=== PATIENT | male | born 1990 | race Caucasian/White ===

== ENCOUNTER 2020-06-21 16:26 | Inpatient (IN) | payer OTHER, SELFPAY ==
--- NOTE | 2020-06-21 | XR_ITS ---
EXAMINATION: XR CHEST CLINICAL INFORMATION: Chest pain. COMPARISON: None TECHNIQUE: 2 views of the chest were obtained. FINDINGS: No significant abnormality is noted involving the heart, lungs, mediastinum, bony thorax or soft tissues. IMPRESSION: Unremarkable examination.
[2020-06-21 16:49] VITALS: BP 121/72; PULSE 51; RESP 18; TEMP 36.4; O2SAT 99; BMI 23.7
[2020-06-21 16:54] VITALS: BP 121/72; PULSE 51; RESP 15; TEMP 36.4; O2SAT 99
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
[2020-06-21] MEDS: LORazepam 1 MG TABLET 2 MG PO (17:37)
[2020-06-21 17:44] LABS: MANUAL DIFF FLAG NO
[2020-06-21 17:49] LABS: Basophils Percent Auto 0.3 % (0-2); Eosinophils Absolute Auto 0.1 X10*3/uL (0.0-0.4); Eosinophils Percent Auto 1.2 % (0-4); Hematocrit 41.8 % (42-52); Hemoglobin 13.9 g/dl (14.0-18.0); Imm Gran Abs Auto 0.02 X10*3/uL (0.00-0.03); Imm Gran Pct Auto 0.2 % (0.0-0.4); Lymphocytes Absolute Auto 1.6 X10*3/uL (1.2-4.9); Mean Corpuscular HGB Conc 33.3 g/dl (31.0-36.0); Mean Corpuscular Hemoglobin 29.8 pg (27.0-33.0); Mean Corpuscular Volume 89.5 fL (80-98); Mean Platelet Volume 9.5 fL (9.4-12.4); Monocytes Absolute Auto 0.5 X10*3/uL (0.1-1.2); Monocytes Percent Auto 5.3 % (2-11); Neutrophils Absolute Auto 6.6 X10*3/uL (2.0-8.3); Platelet Count 240 X10*3/uL (160-400); Red Blood Count 4.67 X10*6/uL (4.60-5.80); Red Cell Distribution Width 13.4 % (11.0-16.0); White Blood Count 8.8 X10*3/uL (4.8-10.8)
[2020-06-21 18:01] LABS: Prothrombin Time 12.4 SEC (10.8-13.0)
[2020-06-21 18:04] LABS: Amphetamine Screen Urine Not Detected (Not Detect); Barbiturates, Urine Not Detected (Not Detect); Benzodiazepines Screen Urine Not Detected (Not Detect); Cannabinoid Screen Urine Not Detected (Not Detect); Cocaine Screen Urine Not Detected (Not Detect); Opiate Screen Urine Not Detected (Not Detect); Phencyclidine Screen Urine Not Detected (Not Detect)
[2020-06-21 18:09] LABS: Ethanol < 10 mg/dL
[2020-06-21 18:18] LABS: Troponin-I High Sensitivity < 3.5 ng/L (<3.5-35.0)
[2020-06-21 18:30] VITALS: BP 110/53; PULSE 52; RESP 15; TEMP 36.7; O2SAT 98
[2020-06-21 18:31] LABS: Alanine Aminotransferase 30 U/L (0-40); Albumin Level 4.3 g/dL (3.5-5.0); Alkaline Phosphatase 78 U/L (39-117); Aspartate Amino Transferase 27 U/L (5-37); Bilirubin Direct 0.2 mg/dL (0.0-0.5); Bilirubin Total 0.4 mg/dL (0.0-1.0); Magnesium 2.1 mg/dL (1.6-2.6); Salicylate < 5.0 mg/dL (15-30); Total Protein 6.7 g/dL (6.5-8.0)
[2020-06-21 18:42] LABS: Acetaminophen LAB < 1 mcg/mL (<30)
[2020-06-21 19:17] LABS: Lipase 18 U/L (8-78)
[2020-06-21 21:23] VITALS: BP 122/61; PULSE 50; RESP 16; TEMP 36.1; O2SAT 99
--- NOTE | 2020-06-21 22:34 | PC.NURSE ---
report faxed to n called and received. pt resting in his room visable on monitor. no s/s of resp distress noted.
--- NOTE | 2020-06-21 23:58 | PC.NURSE ---
pt sleeping in his room needs met at bedside. rr even and reg no s/s of distress. pt visable on the monitor.
[2020-06-22] VITALS (8 sets, daily range): BP systolic 100–126; BP diastolic 46–73; PULSE 62–81; RESP 12–18; TEMP 36.1–37.1; O2SAT 98–99
--- NOTE | 2020-06-22 03:04 | PC.NURSE ---
pt sleeping visable on the monitor, no s/s of distress, rr even and reg.
--- NOTE | 2020-06-22 03:19 | PC.NURSE ---
bhn seen pt at 014
--- NOTE | 2020-06-22 06:10 | PC.NURSE ---
pt has slept thur the night needs met at bedside, pt visable on the monitor, skin warm and dry no s/s of resp distress
--- NOTE | 2020-06-22 06:24 | PC.NURSE ---
pt bp low 100/46 with sleeping.
--- NOTE | 2020-06-22 07:40 | PC.NURSE ---
Report received. PT is sleeping in bed. Breathing is even and unlabored. Inpatient bed search in progress.
--- NOTE | 2020-06-22 09:29 | PC.NURSE ---
PT sitting in bed watching TV. Calm and cooperative. No complaints at the time.
--- NOTE | 2020-06-22 11:07 | PC.NURSE ---
PT is resting in bed. Calm and cooperative. No complaints at this time.
--- NOTE | 2020-06-22 13:17 | PC.NURSE ---
PT is sitting in his bed eating lunch. Calm and cooperative. No complaints at this time.
--- NOTE | 2020-06-22 15:18 | PC.NURSE ---
PT is resting in bed. Calm and cooperative. No other complaints.
--- NOTE | 2020-06-22 17:18 | PC.NURSE ---
PT is resting in bed. Calm and cooperative. Waiting to be reevaluated by [facility].
--- NOTE | 2020-06-22 17:18 | PC.NURSE ---
PT is resting in bed. Calm and cooperative. No other complaints.
--- NOTE | 2020-06-22 19:09 | PC.NURSE ---
Report received from Tamar CONDE. Pt sleeping at this time. Bedsearch continues, 15 min checks for safety.
[2020-06-22] MEDS: Nicotine 21 MG PATCH.TD24 TRANSDERMA (21:18)
--- NOTE | 2020-06-22 22:02 | PC.NURSE ---
Pt sleeping at this time, resp reg and even.
[2020-06-23 02:32] VITALS: RESP 17
[2020-06-23 06:55] VITALS: BP 104/54; PULSE 57; RESP 17; TEMP 37.1; O2SAT 98
[2020-06-23 09:03] VITALS: RESP 18
[2020-06-23 10:54] VITALS: BP 111/62; PULSE 60; RESP 17; TEMP 36.6; O2SAT 99
[2020-06-23 12:37] LABS: SARS COV2 PCR INHOUSE NEGATIVE (Negative)
[2020-06-23 14:00] VITALS: BP 114/70; PULSE 66; TEMP 36.8
--- NOTE | 2020-06-23 18:23 | PC.ADMIT ---
Pt arrived on M5 from [facility] at 1420. PT is a 29 year old Belarusian speaking male on a CV status. PT is Covid - Tox screen and labs were within normal limits. PT is unknown to M5 but does have a history of detox admission at [facility]. PT arrived via ambulance after reporting SI with intent and plan to drink excessively and jump off a bridge. PT is endorsing hopelessness and helplessness and described poor sleep and appetite. PT reported to heavy drinking and binging on heroin and cocaine starting on 06/18/20. PT reported being homeless and does not want to be out on the streets after discharge .Pt is diagnosed with MDD and Autism spectrum. Denied any pain, SI, AH, VH on admit. DR Sanchez called for orders and notified of admission. PT on 15mins safety checks. Pleasant and cooperative on admit. Pt had clear thoughts with stable mood. Pt felt safe on unit and medications were verified with pharmacy
[2020-06-23] MEDS: QUEtiapine Fumarate 100 MG TABLET PO (20:29)
[2020-06-23] MEDS: Naltrexone HCl 50 MG TABLET PO (20:29)
[2020-06-24 08:42] LABS: Cholesterol 142 mg/dL; HDL Cholesterol 31 mg/dL; LDL Cholesterol Calculated 89 mg/dl; Triglycerides 113 mg/dL
[2020-06-24] MEDS: FLUoxetine HCl 20 MG CAPSULE PO (09:03)
[2020-06-24] MEDS: Nicotine 21 MG PATCH.TD24 TRANSDERMA (09:03)
[2020-06-24 09:08] LABS: Estimated Average Glucose 91 mg/dL; Hemoglobin A1c % 4.8 %
[2020-06-24 10:00] VITALS: BP 95/51; PULSE 86; TEMP 36.2
[2020-06-24] MEDS: Silver Sulfadiazine 1 % Cream 20 GM TUBE 1 APPL TOPICAL ×2 (15:00→20:43)
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
[2020-06-24] MEDS: QUEtiapine Fumarate 100 MG TABLET PO (20:43)
[2020-06-24] MEDS: Naltrexone HCl 50 MG TABLET PO (20:43)
[2020-06-24 22:00] VITALS: BP 142/66; PULSE 76; TEMP 36.6
[2020-06-25 07:14] VITALS: BP 110/70; PULSE 55; TEMP 36.3
[2020-06-25] MEDS: Nicotine 21 MG PATCH.TD24 TRANSDERMA (08:47)
[2020-06-25] MEDS: FLUoxetine HCl 20 MG CAPSULE PO (08:47)
[2020-06-25 09:40] VITALS: BP 110/70; PULSE 55; TEMP 36.5
[2020-06-25] MEDS: Silver Sulfadiazine 1 % Cream 20 GM TUBE 1 APPL TOPICAL ×2 (12:16→21:25)
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
[2020-06-25 19:49] VITALS: BP 128/60; PULSE 52; TEMP 36.5
[2020-06-25] MEDS: QUEtiapine Fumarate 100 MG TABLET PO (21:27)
[2020-06-25] MEDS: Naltrexone HCl 50 MG TABLET PO (21:27)
[2020-06-26 06:40] VITALS: BP 100/52; PULSE 56; RESP 16; TEMP 36.4
[2020-06-26] MEDS: FLUoxetine HCl 20 MG CAPSULE PO (09:21)
[2020-06-26] MEDS: Nicotine 21 MG PATCH.TD24 TRANSDERMA (09:21)
[2020-06-26] MEDS: Silver Sulfadiazine 1 % Cream 20 GM TUBE 1 APPL TOPICAL ×2 (09:25→21:40)
[2020-06-26 16:00] VITALS: BP 130/67; PULSE 74; TEMP 36.4
[2020-06-26] MEDS: Naltrexone HCl 50 MG TABLET PO (21:39)
[2020-06-26] MEDS: QUEtiapine Fumarate 100 MG TABLET PO (21:40)
--- NOTE | 2020-06-26 22:14 | P.PNPSI_ITS ---
Subjective Subjective Reason For Visit: major depression , autistic disorder Interim History: patient cooperative on unit not overly agitated or depressed He continues to want CSS and his preference is [place] or [place] Review of Systems Reports system reviewed and no additional complaints, except as documented Mental Status Exam Mental Status Exam Patient Appearance: Well Grooomed Patient Orientation: Person, Place, Time and Situation Level of Consciousness: Awake Patient Behavior: Appropriate Mood Description: Calm Affect Description: Calm Patient Cognition Impaired: No Ability to Follow Directions: Good Speech Pattern: Clear, Appropriate and Spontaneous Speech Memory Description: Intact Diagnostics Vital Signs (24Hr): Vital Signs - 24 hr 06/26/20 06:40 06/26/20 16:00 Temperature 97.5 F 97.6 F Pulse Rate 56 74 Respiratory Rate 16 Blood Pressure 100/52 L 130/67 Body Mass Index 23.7 Labs Results: 06/21/20 17:39 Medications Medications Current Medications Generic Name Dose Route Start Last Admin Trade Name Freq PRN Reason Stop Dose Admin Acetaminophen 650 mg 06/23/20 18:42 Acetaminophen 325 Mg Tablet PO Q6H PRN Headache/Pain Mild Scale (1-3) Al Hydroxide/Mg Hydroxide 30 ml 06/23/20 18:42 Magnesium Hydrox/Alum Hydrox 30 Ml Oral.Susp PO Q6H PRN Heartburn/Nausea Doxycycline Hyclate 100 mg 06/22/20 09:00 06/26/20 21:40 Doxycycline Hyclate 100 Mg Tablet PO 07/01/20 21:01 100 mg BID MEÑO Administration Fluoxetine HCl 20 mg 06/24/20 09:00 06/26/20 09:21 Fluoxetine Hcl 20 Mg Capsule PO 20 mg DAILY MEÑO Administration Hydroxyzine HCl 25 mg 06/23/20 18:42 Hydroxyzine Hcl 25 Mg Tablet PO TID PRN Anxiety Magnesium Hydroxide 30 ml 06/23/20 18:42 Milk Of Magnesia 30 Ml Oral.Susp PO DAILY PRN Constipation Naltrexone HCl 50 mg 06/23/20 21:00 06/26/20 21:39 Naltrexone Hcl 50 Mg Tablet PO 50 mg BEDTIME MEÑO Administration Nicotine 21 mg 06/24/20 09:00 06/26/20 09:21 Nicotine 21 Mg Patch.Td24 TRANSDERMA 21 mg DAILY MEÑO Administration Quetiapine Fumarate 100 mg 06/23/20 21:00 06/26/20 21:40 Quetiapine Fumarate 100 Mg Tablet PO 100 mg BEDTIME MEÑO Administration Silver Sulfadiazine 1 appl 06/24/20 12:20 06/26/20 21:40 Silver Sulfadiazine 1 % Cream 20 Gm Tube TOPICAL 1 appl BID MEÑO Administration Trazodone HCl 50 mg 06/23/20 18:42 Trazodone Hcl 50 Mg Tablet PO BEDTIME PRN Insomnia Allergies Allergies Allergy/AdvReac Type Severity Reaction Status Date / Time Penicillins Allergy Intermediate Hives Verified 06/21/20 17:10 Assessment & Plan Assessment & Plan (1) Cocaine use disorder: Status: Acute Code(s): F14.10 - Cocaine abuse, uncomplicated Assessment and Plan: Refer to [facility] (2) Opioid use disorder: Status: Acute Code(s): F11.99 - Opioid use, unspecified with unspecified opioid-induced disorder Assessment and Plan: Refer to [facility] (3) Alcohol use disorder: Status: Acute Assessment and Plan: Refer to [facility] (4) Major depression: Qualifiers: Major depression recurrence: recurrent Active/Remission status: currently active Major depression episode severity: severe Psychotic features: without psychotic features Qualified Code(s): F33.2 - Major depressive disorder, recurrent severe without psychotic features Status: Acute Code(s): F32.9 - Major depressive disorder, single episode, unspecified Assessment and Plan: CT medication unchanged Skills Groups (5) Burn (any degree) involving 10-19% of body surface: Status: Acute Code(s): T31.10 - Lee involving 10-19% of body surface with 0% to 9% third degree lee Assessment and Plan: CT silvadene and dressings Healing well Greater than 50% of the session was spent on counseling and/or coordination of care
[2020-06-27 06:17] VITALS: BP 107/63; PULSE 52; RESP 16; TEMP 36.4; O2SAT 99
[2020-06-27] MEDS: FLUoxetine HCl 20 MG CAPSULE PO (08:40)
[2020-06-27] MEDS: Nicotine 21 MG PATCH.TD24 TRANSDERMA (08:40)
[2020-06-27] MEDS: Silver Sulfadiazine 1 % Cream 20 GM TUBE 1 APPL TOPICAL ×2 (08:59→22:04)
[2020-06-27] MEDS: Flu Vacc QS2020-21(6mos up)/PF 0.5 ML SYRINGE IM (11:35)
--- NOTE | 2020-06-27 15:25 | P.PNPSI_ITS ---
Subjective Subjective Date of Service: 06/27/20 Reason For Visit: major depression , autistic disorder Subjective Notes: Conditional Voluntary Interim History: Eric has been feeling less depressed and he has no urges to self harm. He is going to groups and finds them helpful. He finds the medication helpful. He continues to want CSS and his preference is [place] or [place] Medication Compliance: Yes Side effects from medications: No Attending Groups: Yes Review of Systems Reports system reviewed and no additional complaints, except as documented Mental Status Exam Mental Status Exam Patient Appearance: Well Grooomed Patient Orientation: Person, Place, Time and Situation Level of Consciousness: Awake Patient Behavior: Appropriate Mood Description: Calm Affect Description: Calm Patient Cognition Impaired: No Ability to Follow Directions: Good Speech Pattern: Clear, Appropriate and Spontaneous Speech Memory Description: Intact Hallucinations: None Delusions: Not Present Thought Process: Rumination and Goal Oriented Thought Content: positive for Circumstantial Depressive Symptoms: Increased Anxiety, Insomnia and Unhappiness Judgement: Fair Diagnostics Vital Signs (24Hr): Vital Signs - 24 hr 06/26/20 16:00 06/27/20 06:17 Temperature 97.6 F 97.5 F Pulse Rate 74 52 Respiratory Rate 16 Blood Pressure 130/67 107/63 Pulse Oximetry 99 Body Mass Index 23.7 Labs Results: 06/21/20 17:39 Medications Medications Current Medications Generic Name Dose Route Start Last Admin Trade Name Kishoreq PRN Reason Stop Dose Admin Acetaminophen 650 mg 06/23/20 18:42 Acetaminophen 325 Mg Tablet PO Q6H PRN Headache/Pain Mild Scale (1-3) Al Hydroxide/Mg Hydroxide 30 ml 06/23/20 18:42 Magnesium Hydrox/Alum Hydrox 30 Ml Oral.Susp PO Q6H PRN Heartburn/Nausea Doxycycline Hyclate 100 mg 06/22/20 09:00 06/27/20 08:40 Doxycycline Hyclate 100 Mg Tablet PO 07/01/20 21:01 100 mg BID MEÑO Administration Fluoxetine HCl 20 mg 06/24/20 09:00 06/27/20 08:40 Fluoxetine Hcl 20 Mg Capsule PO 20 mg DAILY MEÑO Administration Hydroxyzine HCl 25 mg 06/23/20 18:42 Hydroxyzine Hcl 25 Mg Tablet PO TID PRN Anxiety Magnesium Hydroxide 30 ml 06/23/20 18:42 Milk Of Magnesia 30 Ml Oral.Susp PO DAILY PRN Constipation Naltrexone HCl 50 mg 06/23/20 21:00 06/26/20 21:39 Naltrexone Hcl 50 Mg Tablet PO 50 mg BEDTIME MEÑO Administration Nicotine 21 mg 06/24/20 09:00 06/27/20 08:40 Nicotine 21 Mg Patch.Td24 TRANSDERMA 21 mg DAILY EMÑO Administration Quetiapine Fumarate 100 mg 06/23/20 21:00 06/26/20 21:40 Quetiapine Fumarate 100 Mg Tablet PO 100 mg BEDTIME MEÑO Administration Silver Sulfadiazine 1 appl 06/24/20 12:20 06/27/20 08:59 Silver Sulfadiazine 1 % Cream 20 Gm Tube TOPICAL 1 appl BID MEÑO Administration Trazodone HCl 50 mg 06/23/20 18:42 Trazodone Hcl 50 Mg Tablet PO BEDTIME PRN Insomnia Allergies Allergies Allergy/AdvReac Type Severity Reaction Status Date / Time Penicillins Allergy Intermediate Hives Verified 06/21/20 17:10 Assessment & Plan Assessment & Plan (1) Major depression: Qualifiers: Major depression recurrence: recurrent Active/Remission status: currently active Major depression episode severity: severe Psychotic features: without psychotic features Qualified Code(s): F33.2 - Major depressive disorder, recurrent severe without psychotic features Status: Acute Code(s): F32.9 - Major depressive disorder, single episode, unspecified (2) Cocaine use disorder: Status: Acute Code(s): F14.10 - Cocaine abuse, uncomplicated (3) Opioid use disorder: Status: Acute Code(s): F11.99 - Opioid use, unspecified with unspecified opioid-induced disorder (4) Alcohol use disorder: Status: Acute (5) Burn (any degree) involving 10-19% of body surface: Status: Acute Code(s): T31.10 - Lee involving 10-19% of body surface with 0% to 9% third degree lee Assessment and Plan: Eric has been brighter and without thoughts of self harm. He is cooperative with the referrals to [facility]. Greater than 50% of the session was spent on counseling and/or coordination of care Patient educated on: diagnosis, medication risk/benefits and substance abuse Informed Consent: does not understand Reason for contiued inpatient stay Substantial Risk for: rapid decompensation
[2020-06-27 17:18] VITALS: BP 113/66; PULSE 57; TEMP 36.8
--- NOTE | 2020-06-27 18:47 | PC.NURSE ---
right forearm has multiple cigarette lee. area was cleaned with normal saline, padded dry with sterile gauze, bacitracin applied. wounds were covered with sterile netting. some of wounds have purulent draining, no redness, no swelling, no infection noted. afebrile
[2020-06-27] MEDS: Naltrexone HCl 50 MG TABLET PO (22:04)
[2020-06-27] MEDS: QUEtiapine Fumarate 100 MG TABLET PO (22:04)
[2020-06-28 06:24] VITALS: BP 88/42; PULSE 48; RESP 16; TEMP 36.4; O2SAT 98
[2020-06-28] MEDS: FLUoxetine HCl 20 MG CAPSULE PO (08:18)
[2020-06-28] MEDS: Nicotine 21 MG PATCH.TD24 TRANSDERMA (08:18)
--- NOTE | 2020-06-28 09:26 | HO.PSYCHPN ---
Subjective Subjective Date of Service: 06/28/20 Reason For Visit: major depression , autistic disorder Subjective Notes: Conditional Voluntary Interim History: Eric has been feeling less depressed and he has no urges to self harm. He is going to groups and finds them helpful. His mood is good and his anxiety is less. He finds the medication helpful. He continues to want CSS and his preference is [place] or [place] Referrals are in and we await response Medication Compliance: Yes Side effects from medications: No Attending Groups: Yes Review of Systems Acute medical concerns: No Medical Review of Systems: unchanged Review of Systems Reports system reviewed and no additional complaints, except as documented Mental Status Exam Mental Status Exam Patient Appearance: Well Grooomed Patient Orientation: Person, Place, Time and Situation Level of Consciousness: Awake Patient Behavior: Appropriate Mood Description: Calm Affect Description: Calm Patient Cognition Impaired: No Ability to Follow Directions: Good Speech Pattern: Clear, Appropriate and Spontaneous Speech Memory Description: Intact Hallucinations: None Delusions: Not Present Thought Process: Rumination and Goal Oriented Thought Content: positive for Circumstantial Depressive Symptoms: Increased Anxiety Judgement: Fair Diagnostics Vital Signs (24Hr): Vital Signs - 24 hr 06/27/20 17:18 06/28/20 06:24 Temperature 98.3 F 97.6 F Pulse Rate 57 48 L Respiratory Rate 16 Blood Pressure 113/66 88/42 L Pulse Oximetry 98 Body Mass Index 23.7 Labs Results: 06/21/20 17:39 Medications Medications Current Medications Generic Name Dose Route Start Last Admin Trade Name Freq PRN Reason Stop Dose Admin Acetaminophen 650 mg 06/23/20 18:42 Acetaminophen 325 Mg Tablet PO Q6H PRN Headache/Pain Mild Scale (1-3) Al Hydroxide/Mg Hydroxide 30 ml 06/23/20 18:42 Magnesium Hydrox/Alum Hydrox 30 Ml Oral.Susp PO Q6H PRN Heartburn/Nausea Doxycycline Hyclate 100 mg 06/22/20 09:00 06/28/20 08:17 Doxycycline Hyclate 100 Mg Tablet PO 07/01/20 21:01 100 mg BID MEÑO Administration Fluoxetine HCl 20 mg 06/24/20 09:00 06/28/20 08:18 Fluoxetine Hcl 20 Mg Capsule PO 20 mg DAILY MEÑO Administration Hydroxyzine HCl 25 mg 06/23/20 18:42 Hydroxyzine Hcl 25 Mg Tablet PO TID PRN Anxiety Magnesium Hydroxide 30 ml 06/23/20 18:42 Milk Of Magnesia 30 Ml Oral.Susp PO DAILY PRN Constipation Naltrexone HCl 50 mg 06/23/20 21:00 06/27/20 22:04 Naltrexone Hcl 50 Mg Tablet PO 50 mg BEDTIME MEÑO Administration Nicotine 21 mg 06/24/20 09:00 06/28/20 08:18 Nicotine 21 Mg Patch.Td24 TRANSDERMA 21 mg DAILY MEÑO Administration Quetiapine Fumarate 100 mg 06/23/20 21:00 06/27/20 22:04 Quetiapine Fumarate 100 Mg Tablet PO 100 mg BEDTIME MEÑO Administration Silver Sulfadiazine 1 appl 06/24/20 12:20 06/27/20 22:04 Silver Sulfadiazine 1 % Cream 20 Gm Tube TOPICAL 1 appl BID MEÑO Administration Trazodone HCl 50 mg 06/23/20 18:42 Trazodone Hcl 50 Mg Tablet PO BEDTIME PRN Insomnia Allergies Allergies Allergy/AdvReac Type Severity Reaction Status Date / Time Penicillins Allergy Intermediate Hives Verified 06/21/20 17:10 Assessment & Plan Assessment & Plan (1) Major depression: Qualifiers: Major depression recurrence: recurrent Active/Remission status: currently active Major depression episode severity: severe Psychotic features: without psychotic features Qualified Code(s): F33.2 - Major depressive disorder, recurrent severe without psychotic features Status: Acute Code(s): F32.9 - Major depressive disorder, single episode, unspecified (2) Cocaine use disorder: Status: Acute Code(s): F14.10 - Cocaine abuse, uncomplicated (3) Opioid use disorder: Status: Acute Code(s): F11.99 - Opioid use, unspecified with unspecified opioid-induced disorder (4) Alcohol use disorder: Status: Acute (5) Burn (any degree) involving 10-19% of body surface: Status: Acute Code(s): T31.10 - Lee involving 10-19% of body surface with 0% to 9% third degree lee Assessment and Plan: Eric has been calm and pleasant. He is hoping to get a place at a [facility] Lee are healing Greater than 50% of the session was spent on counseling and/or coordination of care Patient educated on: diagnosis, medication risk/benefits and substance abuse Informed Consent: further education needed Reason for contiued inpatient stay Substantial Risk for: rapid decompensation
--- NOTE | 2020-06-28 09:26 | HO.PSYCHPN ---
Subjective Subjective Reason For Visit: major depression , autistic disorder Review of Systems Reports system reviewed and no additional complaints, except as documented Diagnostics Vital Signs (24Hr): Vital Signs - 24 hr 06/27/20 17:18 06/28/20 06:24 Temperature 98.3 F 97.6 F Pulse Rate 57 48 L Respiratory Rate 16 Blood Pressure 113/66 88/42 L Pulse Oximetry 98 Body Mass Index 23.7 Labs Results: 06/21/20 17:39 Medications Medications Current Medications Generic Name Dose Route Start Last Admin Trade Name Freq PRN Reason Stop Dose Admin Acetaminophen 650 mg 06/23/20 18:42 Acetaminophen 325 Mg Tablet PO Q6H PRN Headache/Pain Mild Scale (1-3) Al Hydroxide/Mg Hydroxide 30 ml 06/23/20 18:42 Magnesium Hydrox/Alum Hydrox 30 Ml Oral.Susp PO Q6H PRN Heartburn/Nausea Doxycycline Hyclate 100 mg 06/22/20 09:00 06/28/20 08:17 Doxycycline Hyclate 100 Mg Tablet PO 07/01/20 21:01 100 mg BID MEÑO Administration Fluoxetine HCl 20 mg 06/24/20 09:00 06/28/20 08:18 Fluoxetine Hcl 20 Mg Capsule PO 20 mg DAILY MEÑO Administration Hydroxyzine HCl 25 mg 06/23/20 18:42 Hydroxyzine Hcl 25 Mg Tablet PO TID PRN Anxiety Magnesium Hydroxide 30 ml 06/23/20 18:42 Milk Of Magnesia 30 Ml Oral.Susp PO DAILY PRN Constipation Naltrexone HCl 50 mg 06/23/20 21:00 06/27/20 22:04 Naltrexone Hcl 50 Mg Tablet PO 50 mg BEDTIME MEÑO Administration Nicotine 21 mg 06/24/20 09:00 06/28/20 08:18 Nicotine 21 Mg Patch.Td24 TRANSDERMA 21 mg DAILY MEÑO Administration Quetiapine Fumarate 100 mg 06/23/20 21:00 06/27/20 22:04 Quetiapine Fumarate 100 Mg Tablet PO 100 mg BEDTIME MEÑO Administration Silver Sulfadiazine 1 appl 06/24/20 12:20 06/27/20 22:04 Silver Sulfadiazine 1 % Cream 20 Gm Tube TOPICAL 1 appl BID MEÑO Administration Trazodone HCl 50 mg 06/23/20 18:42 Trazodone Hcl 50 Mg Tablet PO BEDTIME PRN Insomnia Allergies Allergies Allergy/AdvReac Type Severity Reaction Status Date / Time Penicillins Allergy Intermediate Hives Verified 06/21/20 17:10 Assessment & Plan Greater than 50% of the session was spent on counseling and/or coordination of care
[2020-06-28] MEDS: Silver Sulfadiazine 1 % Cream 20 GM TUBE 1 APPL TOPICAL ×2 (09:59→21:51)
[2020-06-28 19:30] VITALS: BP 131/72; TEMP 36.8
[2020-06-28] MEDS: Naltrexone HCl 50 MG TABLET PO (21:39)
[2020-06-28] MEDS: QUEtiapine Fumarate 100 MG TABLET PO (21:40)
[2020-06-28 22:00] VITALS: BP 130/70; PULSE 80; TEMP 36.7
[2020-06-29 07:00] VITALS: BMI 24.8
[2020-06-29] MEDS: FLUoxetine HCl 20 MG CAPSULE PO (08:30)
[2020-06-29] MEDS: Nicotine 21 MG PATCH.TD24 TRANSDERMA (08:31)
[2020-06-29] MEDS: Silver Sulfadiazine 1 % Cream 20 GM TUBE 1 APPL TOPICAL ×2 (09:04→21:26)
[2020-06-29 10:00] VITALS: BP 110/60; PULSE 56; TEMP 36.4
--- NOTE | 2020-06-29 14:02 | HO.PSYCHPN ---
Subjective Subjective Date of Service: 06/29/20 Reason For Visit: major depression , autistic disorder Subjective Notes: Conditional Voluntary Interim History: Eric has been feeling less depressed and he has no urges to self harm. He has various strategies to distract himself. He is going to groups and finds them helpful. His mood is good and his anxiety is less. His lee are healing nicely. He finds the medication helpful. He continues to want CSS and his preference is [place] or [place] Referrals are in and we await response He has no behavioral dyscontrol. Medication Compliance: Yes Side effects from medications: No Attending Groups: Yes Review of Systems Acute medical concerns: No Medical Review of Systems: unchanged Review of Systems Reports system reviewed and no additional complaints, except as documented Mental Status Exam Mental Status Exam Patient Appearance: Well Grooomed Patient Orientation: Person, Place, Time and Situation Level of Consciousness: Awake Patient Behavior: Appropriate Mood Description: Calm Affect Description: Calm Patient Cognition Impaired: No Ability to Follow Directions: Good Speech Pattern: Clear, Appropriate and Spontaneous Speech Memory Description: Intact Hallucinations: None Delusions: Not Present Thought Process: Rumination and Goal Oriented Thought Content: positive for Circumstantial, negative for Suicidal Ideation and negative for Homicidal Ideation Depressive Symptoms: Increased Anxiety Judgement: Fair Diagnostics Vital Signs (24Hr): Vital Signs - 24 hr 06/28/20 19:30 06/28/20 22:00 06/29/20 10:00 Temperature 98.2 F 98.1 F 97.5 F Pulse Rate 80 56 Blood Pressure 131/72 130/70 110/60 Body Mass Index 24.8 Labs Results: 06/21/20 17:39 Medications Medications Current Medications Generic Name Dose Route Start Last Admin Trade Name Freq PRN Reason Stop Dose Admin Acetaminophen 650 mg 06/23/20 18:42 Acetaminophen 325 Mg Tablet PO Q6H PRN Headache/Pain Mild Scale (1-3) Al Hydroxide/Mg Hydroxide 30 ml 06/23/20 18:42 Magnesium Hydrox/Alum Hydrox 30 Ml Oral.Susp PO Q6H PRN Heartburn/Nausea Doxycycline Hyclate 100 mg 06/22/20 09:00 06/29/20 08:30 Doxycycline Hyclate 100 Mg Tablet PO 07/01/20 21:01 100 mg BID MEÑO Administration Fluoxetine HCl 20 mg 06/24/20 09:00 06/29/20 08:30 Fluoxetine Hcl 20 Mg Capsule PO 20 mg DAILY MEÑO Administration Hydroxyzine HCl 25 mg 06/23/20 18:42 Hydroxyzine Hcl 25 Mg Tablet PO TID PRN Anxiety Magnesium Hydroxide 30 ml 06/23/20 18:42 Milk Of Magnesia 30 Ml Oral.Susp PO DAILY PRN Constipation Naltrexone HCl 50 mg 06/23/20 21:00 06/28/20 21:39 Naltrexone Hcl 50 Mg Tablet PO 50 mg BEDTIME MEÑO Administration Nicotine 21 mg 06/24/20 09:00 06/29/20 08:31 Nicotine 21 Mg Patch.Td24 TRANSDERMA 21 mg DAILY MEÑO Administration Quetiapine Fumarate 100 mg 06/23/20 21:00 06/28/20 21:40 Quetiapine Fumarate 100 Mg Tablet PO 100 mg BEDTIME MEÑO Administration Silver Sulfadiazine 1 appl 06/24/20 12:20 06/29/20 09:04 Silver Sulfadiazine 1 % Cream 20 Gm Tube TOPICAL 1 appl BID MEÑO Administration Trazodone HCl 50 mg 06/23/20 18:42 Trazodone Hcl 50 Mg Tablet PO BEDTIME PRN Insomnia Allergies Allergies Allergy/AdvReac Type Severity Reaction Status Date / Time Penicillins Allergy Intermediate Hives Verified 06/21/20 17:10 Assessment & Plan Assessment & Plan (1) Major depression: Qualifiers: Major depression recurrence: recurrent Active/Remission status: currently active Major depression episode severity: severe Psychotic features: without psychotic features Qualified Code(s): F33.2 - Major depressive disorder, recurrent severe without psychotic features Status: Acute Code(s): F32.9 - Major depressive disorder, single episode, unspecified (2) Cocaine use disorder: Status: Acute Code(s): F14.10 - Cocaine abuse, uncomplicated (3) Opioid use disorder: Status: Acute Code(s): F11.99 - Opioid use, unspecified with unspecified opioid-induced disorder (4) Alcohol use disorder: Status: Acute (5) Burn (any degree) involving 10-19% of body surface: Status: Acute Code(s): T31.10 - Lee involving 10-19% of body surface with 0% to 9% third degree lee Assessment and Plan: Await CSS No medication changes Silvadene and dressing to lee Greater than 50% of the session was spent on counseling and/or coordination of care Patient educated on: diagnosis, medication risk/benefits and substance abuse Informed Consent: understands Reason for contiued inpatient stay Substantial Risk for: rapid decompensation
[2020-06-29] MEDS: QUEtiapine Fumarate 100 MG TABLET PO (21:25)
[2020-06-29] MEDS: Naltrexone HCl 50 MG TABLET PO (21:25)
[2020-06-29 21:42] VITALS: BP 129/75; PULSE 74; TEMP 36.5
[2020-06-30 06:30] VITALS: BP 99/51; PULSE 50; RESP 14; TEMP 36.1; O2SAT 98
[2020-06-30] MEDS: Nicotine 21 MG PATCH.TD24 TRANSDERMA (09:12)
[2020-06-30] MEDS: FLUoxetine HCl 20 MG CAPSULE PO (09:12)
[2020-06-30] MEDS: Silver Sulfadiazine 1 % Cream 20 GM TUBE 1 APPL TOPICAL ×2 (09:15→21:23)
--- NOTE | 2020-06-30 09:24 | P.PNPSI_ITS ---
Subjective Subjective Date of Service: 06/30/20 Reason For Visit: major depression , autistic disorder Subjective Notes: Conditional Voluntary Interim History: Eric has been feeling less depressed and he has no urges to self harm. He has various strategies to distract himself. He spends a lot of time reading. He is going to groups and finds them helpful. His mood is good and his anxiety is less. His lee are healing nicely. He finds the medication helpful. He continues to want CSS and his preference is [place] or [place] Referrals are in and we await response He has no behavioral dyscontrol. Medication Compliance: Yes Side effects from medications: No Attending Groups: Yes Review of Systems Acute medical concerns: No Medical Review of Systems: unchanged Review of Systems Reports system reviewed and no additional complaints, except as documented Mental Status Exam Mental Status Exam Patient Appearance: Well Grooomed Patient Orientation: Person, Place, Time and Situation Level of Consciousness: Awake Patient Behavior: Appropriate Mood Description: Calm Affect Description: Calm Patient Cognition Impaired: No Ability to Follow Directions: Good Speech Pattern: Clear, Appropriate and Spontaneous Speech Memory Description: Intact Hallucinations: None Delusions: Not Present Thought Process: Rumination and Goal Oriented Thought Content: positive for Circumstantial, negative for Suicidal Ideation and negative for Homicidal Ideation Depressive Symptoms: Increased Anxiety Judgement: Fair Diagnostics Vital Signs (24Hr): Vital Signs - 24 hr 06/29/20 10:00 06/29/20 21:42 06/30/20 06:30 Temperature 97.5 F 97.7 F 97 F Pulse Rate 56 74 50 Respiratory Rate 14 Blood Pressure 110/60 129/75 99/51 L Pulse Oximetry 98 Body Mass Index 24.8 Labs Results: 06/21/20 17:39 Medications Medications Current Medications Generic Name Dose Route Start Last Admin Trade Name Freq PRN Reason Stop Dose Admin Acetaminophen 650 mg 06/23/20 18:42 Acetaminophen 325 Mg Tablet PO Q6H PRN Headache/Pain Mild Scale (1-3) Al Hydroxide/Mg Hydroxide 30 ml 06/23/20 18:42 Magnesium Hydrox/Alum Hydrox 30 Ml Oral.Susp PO Q6H PRN Heartburn/Nausea Doxycycline Hyclate 100 mg 06/22/20 09:00 06/30/20 09:11 Doxycycline Hyclate 100 Mg Tablet PO 07/01/20 21:01 100 mg BID MEÑO Administration Fluoxetine HCl 20 mg 06/24/20 09:00 06/30/20 09:12 Fluoxetine Hcl 20 Mg Capsule PO 20 mg DAILY MEÑO Administration Hydroxyzine HCl 25 mg 06/23/20 18:42 Hydroxyzine Hcl 25 Mg Tablet PO TID PRN Anxiety Magnesium Hydroxide 30 ml 06/23/20 18:42 Milk Of Magnesia 30 Ml Oral.Susp PO DAILY PRN Constipation Naltrexone HCl 50 mg 06/23/20 21:00 06/29/20 21:25 Naltrexone Hcl 50 Mg Tablet PO 50 mg BEDTIME MEÑO Administration Nicotine 21 mg 06/24/20 09:00 06/30/20 09:12 Nicotine 21 Mg Patch.Td24 TRANSDERMA 21 mg DAILY MEÑO Administration Quetiapine Fumarate 100 mg 06/23/20 21:00 06/29/20 21:25 Quetiapine Fumarate 100 Mg Tablet PO 100 mg BEDTIME MEÑO Administration Silver Sulfadiazine 1 appl 06/24/20 12:20 06/30/20 09:15 Silver Sulfadiazine 1 % Cream 20 Gm Tube TOPICAL 1 appl BID MEÑO Administration Trazodone HCl 50 mg 06/23/20 18:42 Trazodone Hcl 50 Mg Tablet PO BEDTIME PRN Insomnia Allergies Allergies Allergy/AdvReac Type Severity Reaction Status Date / Time Penicillins Allergy Intermediate Hives Verified 06/21/20 17:10 Assessment & Plan Assessment & Plan (1) Major depression: Qualifiers: Major depression recurrence: recurrent Active/Remission status: currently active Major depression episode severity: severe Psychotic features: without psychotic features Qualified Code(s): F33.2 - Major depressive disorder, recurrent severe without psychotic features Status: Acute Code(s): F32.9 - Major depressive disorder, single episode, unspecified (2) Cocaine use disorder: Status: Acute Code(s): F14.10 - Cocaine abuse, uncomplicated (3) Opioid use disorder: Status: Acute Code(s): F11.99 - Opioid use, unspecified with unspecified opioid-induced disorder (4) Alcohol use disorder: Status: Acute (5) Burn (any degree) involving 10-19% of body surface: Status: Acute Code(s): T31.10 - Lee involving 10-19% of body surface with 0% to 9% third degree lee Assessment and Plan: CT medication without change Does not want MAT CT silvadene Await CSS Greater than 50% of the session was spent on counseling and/or coordination of care Patient educated on: diagnosis, medication risk/benefits and substance abuse Informed Consent: understands Reason for contiued inpatient stay Substantial Risk for: rapid decompensation
[2020-06-30] MEDS: Naltrexone HCl 50 MG TABLET PO (21:22)
[2020-06-30] MEDS: QUEtiapine Fumarate 100 MG TABLET PO (21:23)
[2020-06-30 21:55] VITALS: BP 124/68; PULSE 60; TEMP 36.6
[2020-07-01 06:59] VITALS: BP 91/54; PULSE 51; RESP 18; TEMP 36
[2020-07-01] MEDS: Nicotine 21 MG PATCH.TD24 TRANSDERMA (09:52)
[2020-07-01] MEDS: FLUoxetine HCl 20 MG CAPSULE PO (09:52)
[2020-07-01] MEDS: Silver Sulfadiazine 1 % Cream 20 GM TUBE 1 APPL TOPICAL ×2 (09:54→21:45)
[2020-07-01] MEDS: QUEtiapine Fumarate 100 MG TABLET PO (21:47)
[2020-07-01] MEDS: Naltrexone HCl 50 MG TABLET PO (21:47)
[2020-07-01 22:00] VITALS: BP 120/56; PULSE 58; TEMP 36.9
--- NOTE | 2020-07-01 23:27 | HO.PSYCHPN ---
Subjective Subjective Reason For Visit: major depression , autistic disorder Interim History: Eric has been feeling less depressed and he has no urges to self harm. He has various strategies to distract himself. patient generally stable appears to be doing better referrals to rehab setting Review of Systems Reports system reviewed and no additional complaints, except as documented Mental Status Exam Mental Status Exam Patient Appearance: Well Grooomed Patient Orientation: Person, Place, Time and Situation Level of Consciousness: Awake Patient Behavior: Appropriate Mood Description: Calm Affect Description: Calm Patient Cognition Impaired: No Ability to Follow Directions: Good Speech Pattern: Clear, Appropriate and Spontaneous Speech Memory Description: Intact Diagnostics Vital Signs (24Hr): Vital Signs - 24 hr 07/01/20 06:59 07/01/20 22:00 Temperature 96.8 F 98.4 F Pulse Rate 51 58 Respiratory Rate 18 Blood Pressure 91/54 L 120/56 L Body Mass Index 24.8 Labs Results: 06/21/20 17:39 Medications Medications Current Medications Generic Name Dose Route Start Last Admin Trade Name Freq PRN Reason Stop Dose Admin Acetaminophen 650 mg 06/23/20 18:42 Acetaminophen 325 Mg Tablet PO Q6H PRN Headache/Pain Mild Scale (1-3) Al Hydroxide/Mg Hydroxide 30 ml 06/23/20 18:42 Magnesium Hydrox/Alum Hydrox 30 Ml Oral.Susp PO Q6H PRN Heartburn/Nausea Fluoxetine HCl 20 mg 06/24/20 09:00 07/01/20 09:52 Fluoxetine Hcl 20 Mg Capsule PO 20 mg DAILY MEÑO Administration Hydroxyzine HCl 25 mg 06/23/20 18:42 Hydroxyzine Hcl 25 Mg Tablet PO TID PRN Anxiety Magnesium Hydroxide 30 ml 06/23/20 18:42 Milk Of Magnesia 30 Ml Oral.Susp PO DAILY PRN Constipation Naltrexone HCl 50 mg 06/23/20 21:00 07/01/20 21:47 Naltrexone Hcl 50 Mg Tablet PO 50 mg BEDTIME MEÑO Administration Nicotine 21 mg 06/24/20 09:00 07/01/20 09:52 Nicotine 21 Mg Patch.Td24 TRANSDERMA 21 mg DAILY MEÑO Administration Quetiapine Fumarate 100 mg 06/23/20 21:00 07/01/20 21:47 Quetiapine Fumarate 100 Mg Tablet PO 100 mg BEDTIME MEÑO Administration Silver Sulfadiazine 1 appl 06/24/20 12:20 07/01/20 21:45 Silver Sulfadiazine 1 % Cream 20 Gm Tube TOPICAL 1 appl BID MEÑO Administration Trazodone HCl 50 mg 06/23/20 18:42 Trazodone Hcl 50 Mg Tablet PO BEDTIME PRN Insomnia Allergies Allergies Allergy/AdvReac Type Severity Reaction Status Date / Time Penicillins Allergy Intermediate Hives Verified 06/21/20 17:10 Assessment & Plan Assessment & Plan (1) Major depression: Qualifiers: Major depression recurrence: recurrent Active/Remission status: currently active Major depression episode severity: severe Psychotic features: without psychotic features Qualified Code(s): F33.2 - Major depressive disorder, recurrent severe without psychotic features Status: Acute Code(s): F32.9 - Major depressive disorder, single episode, unspecified (2) Cocaine use disorder: Status: Acute Code(s): F14.10 - Cocaine abuse, uncomplicated (3) Opioid use disorder: Status: Acute Code(s): F11.99 - Opioid use, unspecified with unspecified opioid-induced disorder (4) Alcohol use disorder: Status: Acute (5) Burn (any degree) involving 10-19% of body surface: Status: Acute Code(s): T31.10 - Lee involving 10-19% of body surface with 0% to 9% third degree lee Assessment and Plan: CT medication without change Does not want MAT CT silvadene Await CSS continue Prozac Greater than 50% of the session was spent on counseling and/or coordination of care
[2020-07-02 06:20] VITALS: BP 105/55; PULSE 53; RESP 18; TEMP 36.6
[2020-07-02] MEDS: Nicotine 21 MG PATCH.TD24 TRANSDERMA (08:25)
[2020-07-02] MEDS: FLUoxetine HCl 20 MG CAPSULE PO (08:26)
[2020-07-02] MEDS: Silver Sulfadiazine 1 % Cream 20 GM TUBE 1 APPL TOPICAL ×2 (08:48→21:40)
[2020-07-02] MEDS: Naltrexone HCl 50 MG TABLET PO (21:40)
[2020-07-02] MEDS: QUEtiapine Fumarate 100 MG TABLET PO (21:40)
[2020-07-02 22:00] VITALS: BP 140/85; PULSE 87; TEMP 36.6
--- NOTE | 2020-07-02 23:25 | HO.PSYCHPN ---
Subjective Subjective Reason For Visit: major depression , autistic disorder Interim History: patient generally doing better calm cooperative patient generally stable appears to be doing better referrals to rehab setting Review of Systems Reports system reviewed and no additional complaints, except as documented Mental Status Exam Mental Status Exam Patient Appearance: Well Grooomed Patient Orientation: Person, Place, Time and Situation Level of Consciousness: Awake Patient Behavior: Appropriate Mood Description: Calm Affect Description: Calm Patient Cognition Impaired: No Ability to Follow Directions: Good Speech Pattern: Clear, Appropriate and Spontaneous Speech Memory Description: Intact Diagnostics Vital Signs (24Hr): Vital Signs - 24 hr 07/02/20 06:20 07/02/20 22:00 Temperature 97.8 F 98 F Pulse Rate 53 87 Respiratory Rate 18 Blood Pressure 105/55 L 140/85 H Body Mass Index 24.8 Labs Results: 06/21/20 17:39 Medications Medications Current Medications Generic Name Dose Route Start Last Admin Trade Name Freq PRN Reason Stop Dose Admin Acetaminophen 650 mg 06/23/20 18:42 Acetaminophen 325 Mg Tablet PO Q6H PRN Headache/Pain Mild Scale (1-3) Al Hydroxide/Mg Hydroxide 30 ml 06/23/20 18:42 Magnesium Hydrox/Alum Hydrox 30 Ml Oral.Susp PO Q6H PRN Heartburn/Nausea Fluoxetine HCl 20 mg 06/24/20 09:00 07/02/20 08:26 Fluoxetine Hcl 20 Mg Capsule PO 20 mg DAILY MEÑO Administration Hydroxyzine HCl 25 mg 06/23/20 18:42 Hydroxyzine Hcl 25 Mg Tablet PO TID PRN Anxiety Magnesium Hydroxide 30 ml 06/23/20 18:42 Milk Of Magnesia 30 Ml Oral.Susp PO DAILY PRN Constipation Naltrexone HCl 50 mg 06/23/20 21:00 07/02/20 21:40 Naltrexone Hcl 50 Mg Tablet PO 50 mg BEDTIME MEÑO Administration Nicotine 21 mg 06/24/20 09:00 07/02/20 08:25 Nicotine 21 Mg Patch.Td24 TRANSDERMA 21 mg DAILY MEÑO Administration Quetiapine Fumarate 100 mg 06/23/20 21:00 07/02/20 21:40 Quetiapine Fumarate 100 Mg Tablet PO 100 mg BEDTIME MEÑO Administration Silver Sulfadiazine 1 appl 06/24/20 12:20 07/02/20 21:40 Silver Sulfadiazine 1 % Cream 20 Gm Tube TOPICAL 1 appl BID MEÑO Administration Trazodone HCl 50 mg 06/23/20 18:42 Trazodone Hcl 50 Mg Tablet PO BEDTIME PRN Insomnia Allergies Allergies Allergy/AdvReac Type Severity Reaction Status Date / Time Penicillins Allergy Intermediate Hives Verified 06/21/20 17:10 Assessment & Plan Assessment & Plan (1) Major depression: Qualifiers: Major depression recurrence: recurrent Active/Remission status: currently active Major depression episode severity: severe Psychotic features: without psychotic features Qualified Code(s): F33.2 - Major depressive disorder, recurrent severe without psychotic features Status: Acute Code(s): F32.9 - Major depressive disorder, single episode, unspecified (2) Cocaine use disorder: Status: Acute Code(s): F14.10 - Cocaine abuse, uncomplicated (3) Opioid use disorder: Status: Acute Code(s): F11.99 - Opioid use, unspecified with unspecified opioid-induced disorder (4) Alcohol use disorder: Status: Acute (5) Burn (any degree) involving 10-19% of body surface: Status: Acute Code(s): T31.10 - Lee involving 10-19% of body surface with 0% to 9% third degree lee Assessment and Plan: CT medication without change CT silvadene Await CSS continue Prozac referrals for aftercare Greater than 50% of the session was spent on counseling and/or coordination of care
[2020-07-03 06:17] VITALS: BP 100/56; PULSE 55; RESP 14; TEMP 36.4; O2SAT 98
[2020-07-03] MEDS: Nicotine 21 MG PATCH.TD24 TRANSDERMA (08:39)
[2020-07-03] MEDS: Silver Sulfadiazine 1 % Cream 20 GM TUBE 1 APPL TOPICAL ×2 (08:39→22:29)
[2020-07-03] MEDS: FLUoxetine HCl 20 MG CAPSULE PO (08:39)
--- NOTE | 2020-07-03 09:28 | P.PNPSI_ITS ---
Subjective Subjective Date of Service: 07/03/20 Reason For Visit: major depression , autistic disorder Subjective Notes: Conditional Voluntary Interim History: Eric has been reading a lot to distract himself and allay his anxiety He denies SI or urges to self harm. CSS referrals are in place and we are waiting availability of a bed. Medication Compliance: Yes Side effects from medications: No Attending Groups: Yes Review of Systems Acute medical concerns: No Medical Review of Systems: unchanged Review of Systems Reports system reviewed and no additional complaints, except as documented Mental Status Exam Mental Status Exam Patient Appearance: Well Grooomed Patient Orientation: Person, Place, Time and Situation Level of Consciousness: Awake Patient Behavior: Appropriate Mood Description: Calm Affect Description: Calm Patient Cognition Impaired: No Ability to Follow Directions: Good Speech Pattern: Clear, Appropriate and Spontaneous Speech Memory Description: Intact Delusions: Not Present Thought Process: Intact Thought Content: positive for Goal Oriented, negative for Suicidal Ideation and negative for Homicidal Ideation Judgement: Fair Diagnostics Vital Signs (24Hr): Vital Signs - 24 hr 07/02/20 22:00 07/03/20 06:17 Temperature 98 F 97.5 F Pulse Rate 87 55 Respiratory Rate 14 Blood Pressure 140/85 H 100/56 L Pulse Oximetry 98 Body Mass Index 24.8 Labs Results: 06/21/20 17:39 Medications Medications Current Medications Generic Name Dose Route Start Last Admin Trade Name Kishoreq PRN Reason Stop Dose Admin Acetaminophen 650 mg 06/23/20 18:42 Acetaminophen 325 Mg Tablet PO Q6H PRN Headache/Pain Mild Scale (1-3) Al Hydroxide/Mg Hydroxide 30 ml 06/23/20 18:42 Magnesium Hydrox/Alum Hydrox 30 Ml Oral.Susp PO Q6H PRN Heartburn/Nausea Fluoxetine HCl 20 mg 06/24/20 09:00 07/03/20 08:39 Fluoxetine Hcl 20 Mg Capsule PO 20 mg DAILY MEÑO Administration Hydroxyzine HCl 25 mg 06/23/20 18:42 Hydroxyzine Hcl 25 Mg Tablet PO TID PRN Anxiety Magnesium Hydroxide 30 ml 06/23/20 18:42 Milk Of Magnesia 30 Ml Oral.Susp PO DAILY PRN Constipation Naltrexone HCl 50 mg 06/23/20 21:00 07/02/20 21:40 Naltrexone Hcl 50 Mg Tablet PO 50 mg BEDTIME MEÑO Administration Nicotine 21 mg 06/24/20 09:00 07/03/20 08:39 Nicotine 21 Mg Patch.Td24 TRANSDERMA 21 mg DAILY MEÑO Administration Quetiapine Fumarate 100 mg 06/23/20 21:00 07/02/20 21:40 Quetiapine Fumarate 100 Mg Tablet PO 100 mg BEDTIME MEÑO Administration Silver Sulfadiazine 1 appl 06/24/20 12:20 07/03/20 08:39 Silver Sulfadiazine 1 % Cream 20 Gm Tube TOPICAL 1 appl BID MEÑO Administration Trazodone HCl 50 mg 06/23/20 18:42 Trazodone Hcl 50 Mg Tablet PO BEDTIME PRN Insomnia Allergies Allergies Allergy/AdvReac Type Severity Reaction Status Date / Time Penicillins Allergy Intermediate Hives Verified 06/21/20 17:10 Assessment & Plan Assessment & Plan (1) Major depression: Qualifiers: Major depression recurrence: recurrent Active/Remission status: currently active Major depression episode severity: severe Psychotic features: without psychotic features Qualified Code(s): F33.2 - Major depressive di sorder, recurrent severe without psychotic features Status: Acute Code(s): F32.9 - Major depressive disorder, single episode, unspecified (2) Cocaine use disorder: Status: Acute Code(s): F14.10 - Cocaine abuse, uncomplicated (3) Opioid use disorder: Status: Acute Code(s): F11.99 - Opioid use, unspecified with unspecified opioid-induced disorder (4) Alcohol use disorder: Status: Acute (5) Burn (any degree) involving 10-19% of body surface: Status: Acute Code(s): T31.10 - Lee involving 10-19% of body surface with 0% to 9% third degree lee Assessment and Plan: CT medication without change Await CSS Greater than 50% of the session was spent on counseling and/or coordination of care Patient educated on: diagnosis, medication risk/benefits and substance abuse Informed Consent: further education needed Reason for contiued inpatient stay Substantial Risk for: inability to function, rapid decompensation and other (High risk of relapse and possible without a contained setting)
[2020-07-03 22:00] VITALS: BP 128/80; PULSE 68; TEMP 37.2
[2020-07-03] MEDS: Naltrexone HCl 50 MG TABLET PO (22:30)
[2020-07-03] MEDS: QUEtiapine Fumarate 100 MG TABLET PO (22:31)
[2020-07-03] MEDS: traZODone HCL 50 MG TABLET PO (22:31)
[2020-07-04 06:40] VITALS: BP 102/57; PULSE 72; RESP 16; TEMP 36.3
[2020-07-04] MEDS: Nicotine 21 MG PATCH.TD24 TRANSDERMA (08:52)
[2020-07-04] MEDS: FLUoxetine HCl 20 MG CAPSULE PO (08:52)
[2020-07-04] MEDS: Silver Sulfadiazine 1 % Cream 20 GM TUBE 1 APPL TOPICAL ×2 (09:27→21:36)
--- NOTE | 2020-07-04 09:42 | HO.PSYCHPN ---
Subjective Subjective Date of Service: 07/04/20 Reason For Visit: major depression , autistic disorder Subjective Notes: Conditional Voluntary Interim History: Eric has been struggling more. He states that his depression has worsened and that he has nightmares. He has increasing thoughts of self harm. He wishes he did not wake up. We discussed the options and agreed to increase medication and add abilify and prazocin. CSS referrals are in place and we are waiting availability of a bed. He is currently not stable to be TF Medication Compliance: Yes Side effects from medications: No Attending Groups: Yes Review of Systems Acute medical concerns: No Medical Review of Systems: unchanged Review of Systems Reports system reviewed and no additional complaints, except as documented Mental Status Exam Mental Status Exam Patient Appearance: Well Grooomed Patient Orientation: Person, Place, Time and Situation Level of Consciousness: Awake Patient Behavior: Appropriate, Avoidant, Distractible and Poor Eye Contact Mood Description: Calm, Depressed, Flat, Sad and Apprehensive Affect Description: Calm, Apathetic, Depressed, Flat, Sad and Apprehensive Patient Cognition Impaired: No Ability to Follow Directions: Good Speech Pattern: Clear, Appropriate, Spontaneous Speech and Soft-Spoken Memory Description: Intact Delusions: Not Present Thought Process: Intact Thought Content: positive for Goal Oriented, negative for Suicidal Ideation and negative for Homicidal Ideation Depressive Symptoms: Increased Anxiety, Loss of Int. in Activity, Feelings of Worthlessness, Feelings of Guilt, Thoughts of /Suicide and Difficulty Concentrating Judgement: Fair Diagnostics Vital Signs (24Hr): Vital Signs - 24 hr 07/03/20 22:00 07/04/20 06:40 Temperature 99 F 97.4 F Pulse Rate 68 72 Respiratory Rate 16 Blood Pressure 128/80 102/57 L Body Mass Index 24.8 Labs Results: 06/21/20 17:39 Medications Medications Current Medications Generic Name Dose Route Start Last Admin Trade Name Freq PRN Reason Stop Dose Admin Acetaminophen 650 mg 06/23/20 18:42 Acetaminophen 325 Mg Tablet PO Q6H PRN Headache/Pain Mild Scale (1-3) Al Hydroxide/Mg Hydroxide 30 ml 06/23/20 18:42 Magnesium Hydrox/Alum Hydrox 30 Ml Oral.Susp PO Q6H PRN Heartburn/Nausea Fluoxetine HCl 20 mg 06/24/20 09:00 07/04/20 08:52 Fluoxetine Hcl 20 Mg Capsule PO 20 mg DAILY MEÑO Administration Hydroxyzine HCl 25 mg 06/23/20 18:42 Hydroxyzine Hcl 25 Mg Tablet PO TID PRN Anxiety Magnesium Hydroxide 30 ml 06/23/20 18:42 Milk Of Magnesia 30 Ml Oral.Susp PO DAILY PRN Constipation Naltrexone HCl 50 mg 06/23/20 21:00 07/03/20 22:30 Naltrexone Hcl 50 Mg Tablet PO 50 mg BEDTIME MEÑO Administration Nicotine 21 mg 06/24/20 09:00 07/04/20 08:52 Nicotine 21 Mg Patch.Td24 TRANSDERMA 21 mg DAILY MEÑO Administration Quetiapine Fumarate 100 mg 06/23/20 21:00 07/03/20 22:31 Quetiapine Fumarate 100 Mg Tablet PO 100 mg BEDTIME MEÑO Administration Silver Sulfadiazine 1 appl 06/24/20 12:20 07/04/20 09:27 Silver Sulfadiazine 1 % Cream 20 Gm Tube TOPICAL 1 appl BID MEÑO Administration Trazodone HCl 50 mg 06/23/20 18:42 07/03/20 22:31 Trazodone Hcl 50 Mg Tablet PO 50 mg BEDTIME PRN Administration Insomnia Allergies Allergies Allergy/AdvReac Type Severity Reaction Status Date / Time Penicillins Allergy Intermediate Hives Verified 06/21/20 17:10 Assessment & Plan Assessment & Plan (1) Major depression: Qualifiers: Major depression recurrence: recurrent Active/Remission status: currently active Major depression episode severity: severe Psychotic features: without psychotic features Qualified Code(s): F33.2 - Major depressive disorder, recurrent severe without psychotic features Status: Acute Code(s): F32.9 - Major depressive disorder, single episode, unspecified (2) Cocaine use disorder: Status: Acute Code(s): F14.10 - Cocaine abuse, uncomplicated (3) Opioid use disorder: Status: Acute Code(s): F11.99 - Opioid use, unspecified with unspecified opioid-induced disorder (4) Alcohol use disorder: Status: Acute (5) Burn (any degree) involving 10-19% of body surface: Status: Acute Code(s): T31.10 - Lee involving 10-19% of body surface with 0% to 9% third degree lee Assessment and Plan: Add abilify Increase Prozac Prazocin for nightmares Hold on CSS until more stable Greater than 50% of the session was spent on counseling and/or coordination of care
[2020-07-04] MEDS: hydrOXYzine HCL 25 MG TABLET PO (13:06)
[2020-07-04] MEDS: ARIPiprazole 5 MG TABLET PO (14:12)
[2020-07-04 19:24] VITALS: BP 121/64; PULSE 80; TEMP 36.8
[2020-07-04] MEDS: QUEtiapine Fumarate 100 MG TABLET PO (21:38)
[2020-07-04 21:39] VITALS: BP 121/64; PULSE 80
[2020-07-04] MEDS: Prazosin HCL 1 MG CAPSULE 3 MG PO (21:39)
[2020-07-04] MEDS: Naltrexone HCl 50 MG TABLET PO (21:39)
[2020-07-05 06:40] VITALS: BP 85/50; PULSE 51; RESP 16; TEMP 36.4
[2020-07-05] MEDS: FLUoxetine HCl 20 MG CAPSULE 40 MG PO (09:02)
[2020-07-05] MEDS: ARIPiprazole 5 MG TABLET PO (09:02)
[2020-07-05] MEDS: Silver Sulfadiazine 1 % Cream 20 GM TUBE 1 APPL TOPICAL ×2 (09:03→21:47)
[2020-07-05] MEDS: Nicotine 21 MG PATCH.TD24 TRANSDERMA (09:04)
--- NOTE | 2020-07-05 09:39 | HO.PSYCHPN ---
Subjective Subjective Date of Service: 07/05/20 Reason For Visit: major depression , autistic disorder Subjective Notes: Conditional Voluntary Interim History: Eric has been feeling improvement with the changes in medications that were made yesterday. He slept better and he is more optimistic. CSS referrals are in place and we are waiting availability of a bed. He reports that he would feel safe in going. Medication Compliance: Yes Side effects from medications: No Attending Groups: Yes Review of Systems Acute medical concerns: No Medical Review of Systems: unchanged Review of Systems Reports system reviewed and no additional complaints, except as documented Mental Status Exam Mental Status Exam Patient Appearance: Well Grooomed Patient Orientation: Person, Place, Time and Situation Level of Consciousness: Awake Patient Behavior: Appropriate and Good Eye Contact Mood Description: Calm and Sad Affect Description: Calm, Flat and Sad Patient Cognition Impaired: No Ability to Follow Directions: Good Speech Pattern: Clear, Appropriate, Spontaneous Speech and Soft-Spoken Memory Description: Intact Delusions: Not Present Thought Process: Intact Thought Content: positive for Goal Oriented, negative for Suicidal Ideation and negative for Homicidal Ideation Depressive Symptoms: Increased Anxiety and Difficulty Concentrating Judgement: Fair Diagnostics Vital Signs (24Hr): Vital Signs - 24 hr 07/04/20 19:24 07/04/20 21:39 07/05/20 06:40 Temperature 98.3 F 97.5 F Pulse Rate 80 80 51 Respiratory Rate 16 Blood Pressure 121/64 121/64 85/50 L Body Mass Index 24.8 Labs Results: 06/21/20 17:39 Medications Medications Current Medications Generic Name Dose Route Start Last Admin Trade Name Freq PRN Reason Stop Dose Admin Acetaminophen 650 mg 06/23/20 18:42 Acetaminophen 325 Mg Tablet PO Q6H PRN Headache/Pain Mild Scale (1-3) Al Hydroxide/Mg Hydroxide 30 ml 06/23/20 18:42 Magnesium Hydrox/Alum Hydrox 30 Ml Oral.Susp PO Q6H PRN Heartburn/Nausea Aripiprazole 5 mg 07/04/20 13:30 07/05/20 09:02 Aripiprazole 5 Mg Tablet PO 5 mg DAILY MEÑO Administration Fluoxetine HCl 40 mg 07/05/20 09:00 07/05/20 09:02 Fluoxetine Hcl 20 Mg Capsule PO 40 mg DAILY MEÑO Administration Hydroxyzine HCl 25 mg 06/23/20 18:42 07/04/20 13:06 Hydroxyzine Hcl 25 Mg Tablet PO 25 mg TID PRN Administration Anxiety Magnesium Hydroxide 30 ml 06/23/20 18:42 Milk Of Magnesia 30 Ml Oral.Susp PO DAILY PRN Constipation Naltrexone HCl 50 mg 06/23/20 21:00 07/04/20 21:39 Naltrexone Hcl 50 Mg Tablet PO 50 mg BEDTIME MEÑO Administration Nicotine 21 mg 06/24/20 09:00 07/05/20 09:04 Nicotine 21 Mg Patch.Td24 TRANSDERMA 21 mg DAILY MEÑO Administration Prazosin HCl 3 mg 07/04/20 21:00 07/04/20 21:39 Prazosin Hcl 1 Mg Capsule PO 3 mg BEDTIME MEÑO Administration Protocol Quetiapine Fumarate 100 mg 06/23/20 21:00 07/04/20 21:38 Quetiapine Fumarate 100 Mg Tablet PO 100 mg BEDTIME MEÑO Administration Silver Sulfadiazine 1 appl 06/24/20 12:20 07/05/20 09:03 Silver Sulfadiazine 1 % Cream 20 Gm Tube TOPICAL 1 appl BID MEÑO Administration Trazodone HCl 50 mg 06/23/20 18:42 07/03/20 22:31 Trazodone Hcl 50 Mg Tablet PO 50 mg BEDTIME PRN Administration Insomnia Allergies Allergies Allergy/AdvReac Type Severity Reaction Status Date / Time Penicillins Allergy Intermediate Hives Verified 06/21/20 17:10 Assessment & Plan Assessment & Plan (1) Major depression: Qualifiers: Major depression recurrence: recurrent Active/Remission status: currently active Major depression episode severity: severe Psychotic features: without psychotic features Qualified Code(s): F33.2 - Major depressive disorder, recurrent severe without psychotic features Status: Acute Code(s): F32.9 - Major depressive disorder, single episode, unspecified (2) Cocaine use disorder: Status: Acute Code(s): F14.10 - Cocaine abuse, uncomplicated (3) Opioid use disorder: Status: Acute Code(s): F11.99 - Opioid use, unspecified with unspecified opioid-induced disorder (4) Alcohol use disorder: Status: Acute (5) Burn (any degree) involving 10-19% of body surface: Status: Acute Code(s): T31.10 - Lee involving 10-19% of body surface with 0% to 9% third degree lee Assessment and Plan: CT current medications Lee healing Await CSS Greater than 50% of the session was spent on counseling and/or coordination of care Patient educated on: diagnosis, medication risk/benefits and substance abuse Informed Consent: further education needed Reason for contiued inpatient stay Substantial Risk for: rapid decompensation
[2020-07-05 21:41] VITALS: BP 112/61; PULSE 69
[2020-07-05] MEDS: Prazosin HCL 1 MG CAPSULE 3 MG PO (21:41)
[2020-07-05] MEDS: QUEtiapine Fumarate 100 MG TABLET PO (21:46)
[2020-07-05] MEDS: Naltrexone HCl 50 MG TABLET PO (21:46)
[2020-07-05 22:00] VITALS: BP 112/61; PULSE 69; TEMP 37.1
[2020-07-06 06:15] VITALS: BP 105/54; PULSE 57; RESP 16; TEMP 36.7
[2020-07-06 07:00] VITALS: BMI 25.6
[2020-07-06] MEDS: FLUoxetine HCl 20 MG CAPSULE 40 MG PO (08:39)
[2020-07-06] MEDS: ARIPiprazole 5 MG TABLET PO (08:39)
[2020-07-06] MEDS: Nicotine 21 MG PATCH.TD24 TRANSDERMA (08:40)
[2020-07-06] MEDS: Silver Sulfadiazine 1 % Cream 20 GM TUBE 1 APPL TOPICAL ×2 (14:05→21:33)
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
[2020-07-06 18:48] VITALS: BP 133/78; PULSE 74; TEMP 37.1
[2020-07-06] MEDS: Naltrexone HCl 50 MG TABLET PO (21:30)
[2020-07-06 21:31] VITALS: BP 133/78; PULSE 74
[2020-07-06] MEDS: QUEtiapine Fumarate 100 MG TABLET PO (21:31)
[2020-07-06] MEDS: Prazosin HCL 1 MG CAPSULE 3 MG PO (21:31)
[2020-07-07 06:25] VITALS: BP 102/49; PULSE 51; RESP 14; TEMP 36.1; O2SAT 98
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
[2020-07-07] MEDS: Nicotine 21 MG PATCH.TD24 TRANSDERMA (09:57)
[2020-07-07] MEDS: FLUoxetine HCl 20 MG CAPSULE 40 MG PO (09:58)
[2020-07-07] MEDS: ARIPiprazole 5 MG TABLET PO (09:58)
[2020-07-07] MEDS: Silver Sulfadiazine 1 % Cream 20 GM TUBE 1 APPL TOPICAL ×2 (10:02→20:41)
[2020-07-07 18:34] VITALS: BP 136/63; PULSE 67; TEMP 36.9
[2020-07-07 21:38] VITALS: BP 136/63; PULSE 67
[2020-07-07] MEDS: QUEtiapine Fumarate 100 MG TABLET PO (21:38)
[2020-07-07] MEDS: Naltrexone HCl 50 MG TABLET PO (21:38)
[2020-07-07] MEDS: Prazosin HCL 1 MG CAPSULE 3 MG PO (21:38)
[2020-07-08] MEDS: ARIPiprazole 5 MG TABLET PO (09:04)
[2020-07-08] MEDS: FLUoxetine HCl 20 MG CAPSULE 40 MG PO (09:04)
[2020-07-08] MEDS: Silver Sulfadiazine 1 % Cream 20 GM TUBE 1 APPL TOPICAL ×2 (10:06→20:55)
[2020-07-08] MEDS: Nicotine 21 MG PATCH.TD24 TRANSDERMA (10:06)
[2020-07-08 11:24] VITALS: BP 115/58; PULSE 74
[2020-07-08 18:28] VITALS: BP 137/76; PULSE 61; TEMP 36.6
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
[2020-07-08] MEDS: QUEtiapine Fumarate 100 MG TABLET PO (21:48)
[2020-07-08 21:49] VITALS: BP 136/76; PULSE 76
[2020-07-08] MEDS: Prazosin HCL 1 MG CAPSULE 3 MG PO (21:49)
[2020-07-08] MEDS: Naltrexone HCl 50 MG TABLET PO (21:49)
[2020-07-09 07:32] VITALS: BP 100/48; PULSE 58; TEMP 36.1
[2020-07-09] MEDS: FLUoxetine HCl 20 MG CAPSULE 40 MG PO (08:37)
[2020-07-09] MEDS: ARIPiprazole 5 MG TABLET PO (08:37)
[2020-07-09] MEDS: Nicotine 21 MG PATCH.TD24 TRANSDERMA (08:38)
[2020-07-09] MEDS: Silver Sulfadiazine 1 % Cream 20 GM TUBE 1 APPL TOPICAL ×2 (08:39→20:45)
--- NOTE | 2020-07-09 10:56 | P.PNPSI_ITS ---
Subjective Subjective Reason For Visit: major depression , autistic disorder Subjective Notes: Conditional Voluntary Interim History: Eric improving with the changes in medications. He is sleeping better He expresses hope for future. DC is planned for 07/10/20 He denies cravings Medication Compliance: Yes Side effects from medications: No Attending Groups: Yes Review of Systems Acute medical concerns: No Medical Review of Systems: unchanged Review of Systems Review of Systems Reports system reviewed and no additional complaints, except as documented Reports system reviewed and no additional complaints, except as documented Mental Status Exam Mental Status Exam Patient Appearance: Well Grooomed Patient Orientation: Person, Place, Time and Situation Level of Consciousness: Awake Patient Behavior: Appropriate and Good Eye Contact Mood Description: Calm and Sad Affect Description: Calm, Flat and Sad Patient Cognition Impaired: No Ability to Follow Directions: Good Speech Pattern: Clear, Appropriate, Spontaneous Speech and Soft-Spoken Memory Description: Intact Delusions: Not Present Thought Process: Intact Thought Content: positive for Goal Oriented, negative for Suicidal Ideation and negative for Homicidal Ideation Depressive Symptoms: Increased Anxiety and Difficulty Concentrating Judgement: Fair Diagnostics Vital Signs (24Hr): Vital Signs - 24 hr 07/08/20 11:24 07/08/20 18:28 07/08/20 21:49 Temperature 97.8 F Pulse Rate 74 61 76 Blood Pressure 115/58 L 137/76 136/76 07/09/20 07:32 Temperature 96.9 F Pulse Rate 58 Blood Pressure 100/48 L Body Mass Index 25.6 Labs Results: 06/21/20 17:39 Medications Medications Current Medications Generic Name Dose Route Start Last Admin Trade Name Freq PRN Reason Stop Dose Admin Acetaminophen 650 mg 06/23/20 18:42 Acetaminophen 325 Mg Tablet PO Q6H PRN Headache/Pain Mild Scale (1-3) Al Hydroxide/Mg Hydroxide 30 ml 06/23/20 18:42 Magnesium Hydrox/Alum Hydrox 30 Ml Oral.Susp PO Q6H PRN Heartburn/Nausea Aripiprazole 5 mg 07/04/20 13:30 07/09/20 08:37 Aripiprazole 5 Mg Tablet PO 5 mg DAILY MEÑO Administration Fluoxetine HCl 40 mg 07/05/20 09:00 07/09/20 08:37 Fluoxetine Hcl 20 Mg Capsule PO 40 mg DAILY MEÑO Administration Hydroxyzine HCl 25 mg 06/23/20 18:42 07/04/20 13:06 Hydroxyzine Hcl 25 Mg Tablet PO 25 mg TID PRN Administration Anxiety Magnesium Hydroxide 30 ml 06/23/20 18:42 Milk Of Magnesia 30 Ml Oral.Susp PO DAILY PRN Constipation Naltrexone HCl 50 mg 06/23/20 21:00 07/08/20 21:49 Naltrexone Hcl 50 Mg Tablet PO 50 mg BEDTIME MEÑO Administration Nicotine 21 mg 06/24/20 09:00 07/09/20 08:38 Nicotine 21 Mg Patch.Td24 TRANSDERMA 21 mg DAILY MEÑO Administration Prazosin HCl 3 mg 07/04/20 21:00 07/08/20 21:49 Prazosin Hcl 1 Mg Capsule PO 3 mg BEDTIME MEÑO Administration Protocol Quetiapine Fumarate 100 mg 06/23/20 21:00 07/08/20 21:48 Quetiapine Fumarate 100 Mg Tablet PO 100 mg BEDTIME MEÑO Administration Silver Sulfadiazine 1 appl 06/24/20 12:20 07/09/20 08:39 Silver Sulfadiazine 1 % Cream 20 Gm Tube TOPICAL 1 appl BID MEÑO Administration Trazodone HCl 50 mg 06/23/20 18:42 07/03/20 22:31 Trazodone Hcl 50 Mg Tablet PO 50 mg BEDTIME PRN Administration Insomnia Allergies Allergies Allergy/AdvReac Type Severity Reaction Status Date / Time Penicillins Allergy Intermediate Hives Verified 06/21/20 17:10 Assessment & Plan Assessment & Plan (1) Major depression: Qualifiers: Active/Remission status: currently active Major depression episode severity: severe Major depression recurrence: recurrent Psychotic features: without psychotic features Qualified Code(s): F33.2 - Major depressive disorder, recurrent severe without psychotic features Status: Acute Code(s): F32.9 - Major depressive disorder, single episode, unspecified (2) Cocaine use disorder: Status: Acute Code(s): F14.10 - Cocaine abuse, uncomplicated (3) Opioid use disorder: Status: Acute Code(s): F11.99 - Opioid use, unspecified with unspecified opioid-induced disorder (4) Alcohol use disorder: Status: Acute Assessment and Plan: Continue with current medications plan for DC to [facility] on 07/10/20 Greater than 50% of the session was spent on counseling and/or coordination of care Patient educated on: diagnosis, medication risk/benefits and substance abuse Informed Consent: further education needed Reason for contiued inpatient stay Substantial Risk for: inability to function and rapid decompensation Greater than 50% of the session was spent on counseling and/or coordination of care
[2020-07-09 18:43] VITALS: BP 128/74; PULSE 74; TEMP 36.9
[2020-07-09 21:54] VITALS: BP 128/74; PULSE 74
[2020-07-09] MEDS: Naltrexone HCl 50 MG TABLET PO (21:54)
[2020-07-09] MEDS: Prazosin HCL 1 MG CAPSULE 3 MG PO (21:54)
[2020-07-09] MEDS: QUEtiapine Fumarate 100 MG TABLET PO (21:54)
[2020-07-10 06:20] VITALS: BP 97/50; PULSE 100; RESP 18; TEMP 36.3
[2020-07-10] MEDS: Nicotine 21 MG PATCH.TD24 TRANSDERMA (09:13)
[2020-07-10] MEDS: ARIPiprazole 5 MG TABLET PO (09:13)
[2020-07-10] MEDS: FLUoxetine HCl 20 MG CAPSULE 40 MG PO (09:13)
[2020-07-10] MEDS: Silver Sulfadiazine 1 % Cream 20 GM TUBE 1 APPL TOPICAL (09:31)
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
[2020-07-10] MEDS: Naloxone HCl Nasal TAKE HOME 4 MG SPRAY NOSTRILALT (11:35)
== END 2020-07-10 11:43 | DRG 751 ==
LOC: HO.ED 06-23 14:23 → HO.PM5 06-23 15:33
PROVIDERS: Nurse Practitioner Family; Physician Assistant Medical; Admitting Provider Psychiatry & Neurology Psychiatry; Emergency Provider Student in an Organized Health Care Education/Training Program; Visit Provider Psychiatry & Neurology Psychiatry
DX: F33.2 Major depressive disorder, recurrent severe without psychotic features (principal); T31.0 Burns involving less than 10% of body surface; R45.851 Suicidal ideations; F17.210 Nicotine dependence, cigarettes, uncomplicated; F14.10 Cocaine abuse, uncomplicated; F84.0 Autistic disorder; Z20.828 Contact with and (suspected) exposure to other viral communicable diseases; Z71.6 Tobacco abuse counseling; F11.90 Opioid use, unspecified, uncomplicated; X08.8XXA Exposure to other specified smoke, fire and flames, initial encounter; Y93.9 Activity, unspecified; Y92.9 Unspecified place or not applicable; Y99.9 Unspecified external cause status; Z88.0 Allergy status to penicillin; Z79.899 Other long term (current) drug therapy
CPT/HCPCS: 36415; 71046; 80061; 80076; 80307; 80320; 83036; 83690; 83735; 84484; 85025; 85610; 87635; 90686; 99232; 99285; G0480

== ENCOUNTER 2020-09-30 09:59 | Emergency (ER) | payer MEDICAID, SELFPAY ==
[2020-09-30 11:42] VITALS: BP 127/74; PULSE 84; RESP 15; TEMP 36.8; O2SAT 100; BMI 25.7
--- NOTE | 2020-09-30 11:47 | ED_ITS ---
HPI - Skin/Abscess/Foreign Bdy General Chief complaint: Skin/Abscess/Foreign Body Stated complaint: infection? lt arm Time Seen by Provider: 09/30/20 11:47 History of Present Illness HPI narrative: Patient complains of redness to the left forearm. He and engages regularly in self-harm burning his forearms with cigarettes he has done this for a long time and says for him it is his stress reliever He is under psychiatric care and lives in a fdc and has engaged in this behavior for a long time. He denies any suicidal ideation he says he does not want to kill himself or harm himself in any more violent way, he denies any drug use now and says he is on his way to recovery and has a psychiatrist and a therapist The redness has been there for 2 or 3 days, it is mildly painful, no fever no chills Related Data Home Medications Medication Instructions Recorded Confirmed oxcarbazepine 150 mg PO BID 06/22/20 06/22/20 Previous Rx's Medication Instructions Recorded aripiprazole [Abilify] 5 mg PO DAILY #30 tab 07/10/20 clonidine HCl 0.1 mg PO DAILY PRN #30 tab 07/10/20 fluoxetine 40 mg PO DAILY #60 cap 07/10/20 hydroxyzine HCl 25 mg PO TID PRN #90 tab 07/10/20 naltrexone 50 mg PO BEDTIME #30 tab 07/10/20 prazosin 1 mg PO QPM #30 cap 07/10/20 quetiapine [Seroquel] 100 mg PO BEDTIME #30 tab 07/10/20 silver sulfadiazine 1 appl TOPICAL BID #25 g 07/10/20 trazodone 50 mg PO BEDTIME PRN #30 tab 07/10/20 clindamycin HCl 300 mg PO Q6H 7 Days #28 cap 09/30/20 Allergies Allergy/AdvReac Type Severity Reaction Status Date / Time Penicillins Allergy Intermediate Hives Verified 06/21/20 17:10 Review of Systems Review of Systems: Positive for redness of left forearm and cigarette lee He denies fever chills dizziness weakness chest pain shortness of breath abdominal pain no numbness no weakness He denies suicidal ideation he denies homicidal ideation he denies hearing voices [facility] Past Medical History Attestation statement: The following information was validated with the patient. [facility] Narrative: Is under care of a therapist and psychiatrist and lives in a fdc for recovery from narcotic dependence Source: nursing notes reviewed Medical History Hepatitis C Social History Social History Household Members: None Housing: Homeless Alcohol intake: former Smoking Status: Current every day smoker Tobacco Type: Cigarette Packs Per Day: 1 Cigarettes Per Day: 20.0 Years Smoked: 14 Smoked in Last 30 Days: Yes Second Hand Smoke Exposure: Yes Substance Use Type: Heroin Any prior treatment program specific to substance use: Yes (recovery home at present time) Advance Directives: No Advance Directives Information Provided: No service: No Sexual orientation: Straight/Heterosexual Physical Exam Vital Signs: Vital Signs: Last Vital Signs Temp 98.2 F 09/30/20 11:42 Pulse 84 09/30/20 11:42 Resp 15 09/30/20 11:42 BP 127/74 09/30/20 11:42 Pulse Ox 100 09/30/20 11:42 Body Mass Index 25.7 Patient is comp comfortable relaxed and cooperative and is interacting normally The head is normocephalic atraumatic The neck is supple Respiratory no distress Extremities there are healing burn hawkins on both forearms but the left forearm dorsal aspect there is some redness around the cigarette lee, there are small scabs but no deep lee, there is full range of motion in elbow wrist and hand there is no swelling there is no discharge there is no fluctuance there is no lymphangitis and all is neurovascular intact distal Neuro is no focal deficit Course Course Course Narrative: Patient was given a tetanus shot and treated with clindamycin antibiotic for the cellulitis of his left forearm His self-harm by burning his forearms with cigarettes has been ongoing and had been followed by therapist and psychiatrist who are well aware of the problem, he gives a clear explanation of why he is doing it and is very clear that he does not want to harm himself any further, is not hearing voices and he is discharged Discharge Plan Discharge Clinical Impression: Cellulitis Qualifiers: Site of cellulitis: extremity Site of cellulitis of extremity: upper extremity Laterality: left Qualified Code(s): L03.114 - Cellulitis of left upper limb Patient Disposition: Home, Self-Care Additional Instructions: We gave you a tetanus shot and started antibiotic clindamycin Return to ER any time for spreading redness, red stripe up arm, worse pain and swelling, fever, any sign of worsening infection or any concerns Follow with therapist and psychiatrist and return to ER any time for suicidal thoughts or any worse condition or concerns Prescriptions: New clindamycin HCl 300 mg capsule 300 mg PO Q6H 7 Days Qty: 28 RF: 0 No Action oxcarbazepine 150 mg Tablet 150 mg PO BID RF: 0 trazodone 50 mg Tablet 50 mg PO BEDTIME PRN (Reason: Insomnia) Qty: 30 RF: 1 fluoxetine 20 mg Capsule 40 mg PO DAILY Qty: 60 RF: 1 aripiprazole [Abilify] 5 mg Tablet 5 mg PO DAILY Qty: 30 RF: 1 silver sulfadiazine 1 % Cream 1 appl topical BID Qty: 25 RF: 1 clonidine HCl 0.1 mg Tablet 0.1 mg PO DAILY PRN (Reason: Anxiety) Qty: 30 RF: 1 prazosin 1 mg Capsule 1 mg PO QPM Qty: 30 RF: 1 naltrexone 50 mg Tablet 50 mg PO BEDTIME Qty: 30 RF: 1 quetiapine [Seroquel] 100 mg Tablet 100 mg PO BEDTIME Qty: 30 RF: 1 hydroxyzine HCl 25 mg Tablet 25 mg PO TID PRN (Reason: Anxiety) Qty: 90 RF: 1
== END 2020-09-30 12:37 | disposition home or self-care (01) ==
PROVIDERS: Emergency Provider Emergency Medicine Emergency Medical Services
DX: L03.114 Cellulitis of left upper limb (principal); S50.812A Abrasion of left forearm, initial encounter; M79.632 Pain in left forearm; F17.210 Nicotine dependence, cigarettes, uncomplicated; Z71.6 Tobacco abuse counseling; Z59.0 Homelessness; Z23 Encounter for immunization; Z79.899 Other long term (current) drug therapy
CPT/HCPCS: 90471; 90715; 99283; 99284